=== PATIENT | female | born 1955 | race Caucasian/White ===

== ENCOUNTER 2024-04-20 04:46 | Inpatient (IN) | payer MEDICARE, SELFPAY ==
[2024-04-20] VITALS (7 sets, daily range): BP systolic 99–151; BP diastolic 60–106; BMI 24.3
--- NOTE | 2024-04-20 00:56 | ED.GENMED ---
History of Present Illness
<Sharlene Murphy MD - Last Filed: 04/20/24 10:03>
General
Chief Complaint: Abdominal Pain
Source: patient
Time Seen by Provider: 04/20/24 00:42
History of Present Illness
History of Present Illness:
This pt is a 68 yr old female who presents to the ED with c/o abd pain that began in epigastric area 2 days ago, gradual in onset, continuous...that got much worse after dinner tonight and has migrated to [facility]. Pt notes mild n, no v/f/c/cp/sob/back
pain. She denies radiation, relieving sxs, but notes worse with certain movements and when she tried herself to elicit rebound (pt is an [employer]). Pt denies urinary sxs, and had a bm recently.
Past History
<Sharlene Murphy MD - Last Filed: 04/20/24 10:03>
Past History
ED Past Medical History: Other (anxiety)
ED Past Surgical History: Other (ex lap for iud perforation of uterus, splenectomy)
Social History
Tobacco: Vaping
Alcohol: Other (5x/week)
Drug: None
Personal: Single
Employment: Employed
Phy Exam
<Sharlene Murphy MD - Last Filed: 04/20/24 10:03>
Physical Exam
Physical Exam:
GENERAL: Alert , appears mildly uncomfortable but pleasant
EYE: pupils equal and reactive
NECK: Supple, no significant adenopathy.
ENT: o/p clr, mmm.
CARDIAC: Regular rate and rhythm .
LUNGS: Clear breath sounds bilaterally, no acute respiratory distress, no wheezes/rales/rhonchi
ABDOMEN: Soft, llq mod tenderness, no guarding, no cvat (did not repeat rebound testing)
NEUROLOGICAL: Alert and oriented, no focal neuro deficits
SKIN: Warm and dry, skin intact.
MUSCULOSKELETAL: No edema, well perfused.
PSYCH: Normal and appropriate interaction.
Course
<Sharlene Murphy MD - Last Filed: 04/20/24 10:03>
Orders/Labs/Results
Orders:
Orders
04/20/24 00:55
CT Abd/Pel (IV only)-DH only Urgent
Comment:
Reason For Exam: LLQ ABD PAIN
Cardiac Monitoring- Treatment ONCE
Ketorolac [Toradol] 15 mg IV NOW STA
04/20/24 01:05
Comprehensive Metabolic Panel Urgent
Lipase Urgent
04/20/24 01:06
Complete Blood Count/No Diff Urgent
04/20/24 02:21
Morphine Sulfate 4 mg IV NOW STA
04/20/24 03:31
LevoFLOXacin 750 MG/150 ML [Levaquin] 750 mg in 150 ml IV NOW
MetroNIDAZOLE 500 MG/100 ML [Flagyl 500 mg] 100 ml IV NOW
04/20/24 03:55
Urinalysis Reflex To Culture Urgent
Date Specimen was Collected: 04/20/24
Time Specimen was Collected: 03:50
04/20/24 04:24
Admit/Transfer Patient As Directed
Co-Sign Provider:
Level of Care: Inpatient admission
Assign to:: Medical/Surgical
Physician / Group: Dottie Soares
Diagnosis: acute diverticulitis
Reason for Hospitalization: acute diverticulitis
Expected length of stay greater than two midnights?: Yes
ELOS- Estimated Length of Stay in days: 3
I certify the patient meets the requirements for IP care: Yes
Code Status As Directed
Resuscitation Status: Full Code
PRN Pain Medication Management As Directed
May give lesser potent ordered pain med per pt: Yes
preference::
Protocol:: Medication orders for pain may be administered in a
manner that supports deferring to patient preference
when the pt is:
- Requesting an ordered lesser potent pain medication.
Least to most potent pain medications are defined
as: acetaminophen < NSAID < tramadol < opioids
(morphine, oxycodone, hydromorphone).
- Requesting a lesser dose of the same medication IF
ORDERED.
- Requesting a less intrusive route of administration
if both routes are prescribed by the provider (PO <
IV).
04/20/24 04:59
Acetaminophen [Tylenol] 650 mg PO Q4HPRN PRN
Alprazolam [Xanax] 0.125 mg PO HSPRN PRN
Ketorolac [Toradol] 10 mg IV Q6HPRN PRN
Morphine Sulfate 4 mg IV Q4HPRN PRN
04/20/24 04:59
Activity As Directed
Activity Level: As Tolerated
Vital Signs As Directed
Frequency: Per unit guidelines
DX Deep Vein Thrombosis Video Routine
04/20/24 05:00
Flush (0.9% Sodium Chloride) [Flush (Nss)] See Dose Instructions IV PER PROTOCOL
Lactated Ringers [Lr] 1,000 ml IV 100 mls/hr
04/20/24 Breakfast
Clear Liquid
At Your Request: Full Participation
Piperacillin/Tazo 3.375 Gram [Zosyn] 3.375 gram in 50 ml IV Q6H
04/20/24 08:36
Basic Metabolic Panel IN AM
Complete Blood Count/With Diff IN AM
Magnesium IN AM
04/20/24 18:00
Enoxaparin Sodium [Lovenox] 40 mg SC QPM
04/20/24 22:00
Sertraline HCl [Zoloft] 50 mg PO HS
Abnormal Lab Results
04/20/24 04/20/24
01:05 01:06
WBC 14.3 H 10^3/uL
(4.8-10.8)
RBC 3.62 L 10^6/uL
(4.20-5.40)
Hgb 11.7 L g/dL
(12.0-16.0)
Hct 32.6 L %
(37.0-47.0)
MCH 32.3 H pg
(27.0-31.0)
BUN 20 H mg/dl
(7-17)
Glucose 137 H mg/dl
(70-99)
04/20/24 01:06
04/20/24 01:05
Vital Signs
Initial and Last Documented VS:
Initial Vital Signs
Temp Pulse Resp BP Pulse Ox
99.4 F 80 16 151/106 99
04/20/24 00:26 04/20/24 00:26 04/20/24 00:26 04/20/24 00:26 04/20/24 00:26
Last Documented Vital Signs
Temp Pulse Resp BP Pulse Ox
98.2 F 57 18 99/69 100
04/20/24 08:16 04/20/24 08:16 04/20/24 08:16 04/20/24 08:16 04/20/24 08:16
<Arjun Morris, DO - Last Filed: 04/20/24 04:38>
Orders/Labs/Results
Orders:
Orders
04/20/24 00:55
CT Abd/Pel (IV only)-DH only Urgent
Comment:
Reason For Exam: LLQ ABD PAIN
Cardiac Monitoring- Treatment ONCE
Ketorolac [Toradol] 15 mg IV NOW STA
04/20/24 01:05
Comprehensive Metabolic Panel Urgent
Lipase Urgent
04/20/24 01:06
Complete Blood Count/No Diff Urgent
04/20/24 02:21
Morphine Sulfate 4 mg IV NOW STA
04/20/24 03:31
LevoFLOXacin 750 MG/150 ML [Levaquin] 750 mg in 150 ml IV NOW
MetroNIDAZOLE 500 MG/100 ML [Flagyl 500 mg] 100 ml IV NOW
04/20/24 03:55
Urinalysis Reflex To Culture Urgent
Date Specimen was Collected: 04/20/24
Time Specimen was Collected: 03:50
04/20/24 04:24
Admit/Transfer Patient As Directed
Co-Sign Provider:
Level of Care: Inpatient admission
Assign to:: Medical/Surgical
Physician / Group: Dottie Soares
Diagnosis: acute diverticulitis
Reason for Hospitalization: acute diverticulitis
Expected length of stay greater than two midnights?: Yes
ELOS- Estimated Length of Stay in days: 3
I certify the patient meets the requirements for IP care: Yes
Code Status As Directed
Resuscitation Status: Full Code
PRN Pain Medication Management As Directed
May give lesser potent ordered pain med per pt: Yes
preference::
Protocol:: Medication orders for pain may be administered in a
manner that supports deferring to patient preference
when the pt is:
- Requesting an ordered lesser potent pain medication.
Least to most potent pain medications are defined
as: acetaminophen < NSAID < tramadol < opioids
(morphine, oxycodone, hydromorphone).
- Requesting a lesser dose of the same medication IF
ORDERED.
- Requesting a less intrusive route of administration
if both routes are prescribed by the provider (PO <
IV).
04/20/24 04:59
Acetaminophen [Tylenol] 650 mg PO Q4HPRN PRN
Alprazolam [Xanax] 0.125 mg PO HSPRN PRN
Ketorolac [Toradol] 10 mg IV Q6HPRN PRN
Morphine Sulfate 4 mg IV Q4HPRN PRN
04/20/24 04:59
Activity As Directed
Activity Level: As Tolerated
Vital Signs As Directed
Frequency: Per unit guidelines
DX Deep Vein Thrombosis Video Routine
04/20/24 05:00
Flush (0.9% Sodium Chloride) [Flush (Nss)] See Dose Instructions IV PER PROTOCOL
Lactated Ringers [Lr] 1,000 ml IV 100 mls/hr
04/20/24 Breakfast
Clear Liquid
At Your Request: Full Participation
Piperacillin/Tazo 3.375 Gram [Zosyn] 3.375 gram in 50 ml IV Q6H
04/20/24 08:36
Basic Metabolic Panel IN AM
Complete Blood Count/With Diff IN AM
Magnesium IN AM
04/20/24 18:00
Enoxaparin Sodium [Lovenox] 40 mg SC QPM
04/20/24 22:00
Sertraline HCl [Zoloft] 50 mg PO HS
Abnormal Lab Results
04/20/24 04/20/24
01:05 01:06
WBC 14.3 H 10^3/uL
(4.8-10.8)
RBC 3.62 L 10^6/uL
(4.20-5.40)
Hgb 11.7 L g/dL
(12.0-16.0)
Hct 32.6 L %
(37.0-47.0)
MCH 32.3 H pg
(27.0-31.0)
BUN 20 H mg/dl
(7-17)
Glucose 137 H mg/dl
(70-99)
04/20/24 01:06
04/20/24 01:05
Vital Signs
Initial and Last Documented VS:
Initial Vital Signs
Temp Pulse Resp BP Pulse Ox
99.4 F 80 16 151/106 99
04/20/24 00:26 04/20/24 00:26 04/20/24 00:26 04/20/24 00:26 04/20/24 00:26
Last Documented Vital Signs
Temp Pulse Resp BP Pulse Ox
98.2 F 57 18 99/69 100
04/20/24 08:16 04/20/24 08:16 04/20/24 08:16 04/20/24 08:16 04/20/24 08:16
<Arjun Morris DO - Last Filed: 04/20/24 04:38>
*Critical Care Note
Total Time (30-74mins, 75-104mins- exclusive of procedures): Not Applicable
<Sharlene Murphy MD - Last Filed: 04/20/24 10:03>
Update Note
Update Note:
Patient presents to the Emergency Department with ___abd pain
Number and Complexity of Problems Addressed at the Encounter
� Chronic conditions affecting care:
� Acute Exacerbation and/or Progression of Chronic Illness:
� Differential Diagnosis includes:but not limited to diverticulitis, pancreatitis, bowel obstruction, bowel perforation, etc. etc.
Amount and/or Complexity of Data to be Reviewed and Analyzed
� I performed an independent evaluation of and my interpretation is:
EKG:
CT:
Xrays:
Laboratory Studies:leukocytosis
Other:
� Review of other/old records reveals: echo 03/2023 CONCLUSIONS
Normal biventricular size and systolic function without regional wall motion
abnormality.
No significant valvular disease.
No significant change since the prior study of 05/14/20.
� Clinical information was obtained by an independent historian:
� Prescriptions/Medications Considered but not given:
� Further testing considered but not performed:
Risk of Complications and/or Morbidity or Mortality of Patient Management
� Social determinants of health affecting care:
� Discussion with other providers (PCP, Hospitalists, Consultants, etc):
� Escalation of care including admission/observation vs risk of discharge considered: [address] report, reassessment continued ttp now throughout lower abd, no guarding. Pt is sl nauseous, but no vomiting. Medicated
at pt request (now with morphine).
<Arjun Morris, - Last Filed: 04/20/24 04:38>
Update Note
Update Note:
Patient presents to the Emergency Department with ___abd pain
Number and Complexity of Problems Addressed at the Encounter
� Chronic conditions affecting care:
� Acute Exacerbation and/or Progression of Chronic Illness:
� Differential Diagnosis includes:but not limited to diverticulitis, pancreatitis, bowel obstruction, bowel perforation, etc. etc.
Amount and/or Complexity of Data to be Reviewed and Analyzed
� I performed an independent evaluation of and my interpretation is:
EKG:
CT:
Xrays:
Laboratory Studies:leukocytosis
Other:
� Review of other/old records reveals: echo 03/2023 CONCLUSIONS
Normal biventricular size and systolic function without regional wall motion
abnormality.
No significant valvular disease.
No significant change since the prior study of 05/14/20.
� Clinical information was obtained by an independent historian:
� Prescriptions/Medications Considered but not given:
� Further testing considered but not performed:
Risk of Complications and/or Morbidity or Mortality of Patient Management
� Social determinants of health affecting care:
� Discussion with other providers (PCP, Hospitalists, Consultants, etc):
� Escalation of care including admission/observation vs risk of discharge considered: [address] report, reassessment continued ttp now throughout lower abd, no guarding. Pt is sl nauseous, but no vomiting. Medicated
at pt request (now with morphine).
Update: Discussed findings with patient. She is resting comfortably at this time. She wishes to be admitted. Patient admitted to the hospitalist service for diverticulitis. Started on IV antibiotics.
ED Attending Note
<Sharlene Murphy MD - Last Filed: 04/20/24 10:03>
-
Portions of this chart may have been created with voice recognition software.� Occasional wrong word or��sound alike� substitutions may have occurred due to the inherent limitations of voice recognition software.
Discharge Plan
Departure
Patient Disposition: Admit
Date of Disposition: 04/20/24
Time of Disposition: 03:33
Admit to: Med/Surg
Presentation/result/management discussed w/ accepting MD/DO: Hospitalist
Discharge Problem:
Acute diverticulitis
Interventions
Interventions:
*Risk Screen - Suicide Last Done: 04/20/24 06:29
*General Assessment Last Done: 04/20/24 00:26
*Neglect/Abuse Screening Last Done: 04/20/24 00:26
ED- Fall Risk Assessment Last Done: 04/20/24 00:26
*ED COVID-19 Vaccine History Last Done: 04/20/24 06:29
*Nursing Disposition Last Done: 04/20/24 06:18
GV-Yqcqzq-Qkexgwxzkd Assessment Last Done: 04/20/24 01:21
Discharge Date and Time
Discharge Date/Time: 04/20/24 06:19
[2024-04-20] MEDS: TORADOL 15 MG IV (01:06)
[2024-04-20 01:20] LABS: Hematocrit 32.6 % (37.0-47.0); Hemoglobin 11.7 g/dL (12.0-16.0); Mean Corp Hgb Conc. 35.9 g/dL (33.0-37.0); Mean Corpuscular Hgb 32.3 pg (27.0-31.0); Mean Corpuscular Volume 90.1 fL (81.0-99.0); Mean Platelet Volume 9.9 fL (7.4-10.4); Platelet Count 318 10^3/uL (130-400); Red Blood Cell Count 3.62 10^6/uL (4.20-5.40); Red Cell Dist. Width 13.2 % (11.5-14.5); White Blood Cell Count 14.3 10^3/uL (4.8-10.8)
[2024-04-20 01:29] LABS: ALT (SGPT) 21 U/L (0-35); AST (SGOT) 24 U/L (14-36); Alkaline Phosphatase 55 U/L (38-126); Blood Urea Nitrogen 20 mg/dl (7-17); Calcium 9.3 mg/dl (8.4-10.2); Carbon Dioxide 25 mmol/L (22-30); Chloride 105 mmol/L (98-107); Glucose 137 mg/dl (70-99); Lipase 56 U/L (23-300); Sodium 136 mmol/L (135-145); Total Bilirubin 0.4 mg/dl (0.2-1.3); Total Protein 6.7 g/dl (6.3-8.2); eGFR > 60.00
[2024-04-20] MEDS: MORPHINE SULFATE 4 MG IV ×3 (02:21→16:50)
[2024-04-20] MEDS: FLAGYL 500 MG 100 IV (03:42)
--- NOTE | 2024-04-20 03:54 | HPS.HSE ---
Family Physician
-
Family Physician: * NONE
Chief Complaint
-
abdominal pain
History of Present Illness
Ms. Jackie Ferrara is a 68 yo woman with hx IUD perforation of uterus s/p ex-lap, spontaneous spleen rupture s/p splenectomy presents to the ER with abdominal pain.
Pain has been present over past 2 days and she had acute worsening this evening. Pain is in lower quadrants. + nausea, no vomiting, no diarrhea. No black or bloody stools. No fevers, + chills.
No chest pain or shortness of breath. No LE swelling.
Medical History
Past Medical History
Past Medical History: Reports Other (anxiety)
Past Surgical History: Reports Other ( IUD perforation of uterus s/p ex-lap, splenectomy )
Social History
Tobacco: Vaping
Alcohol: Other (5x/week)
Family History
Family History: Cancer (colon cancer, mother in 80's)
Allergies / Home Medications
Allergies reflects when Allergies were last updated in [employer].
Home Medications with original date entered in [employer]
Allergy/Medication List:
Allergies
Allergy/AdvReac Type Severity Reaction Status Date / Time
tod Allergy Hives Verified 04/20/24 00:26
strawberry Allergy Hives Verified 04/20/24 00:26
Sulfa (Sulfonamide Allergy Unknown Verified 04/20/24 00:26
Antibiotics)
Home Medications
alprazolam 0.25 mg tablet 0.125 mg PO HSPRN PRN insomnia 04/20/24
sertraline 50 mg tablet (Zoloft) 50 mg PO HS 04/20/24
Review of Systems
-
History Source: Patient
A 12 point ROS was completed and negative except as noted: Yes
Physical Exam
Vital Signs
Vital Signs
Temp Pulse Resp BP Pulse Ox
99.4 F 80 16 132/74 97
04/20/24 00:26 04/20/24 00:26 04/20/24 00:26 04/20/24 03:03 04/20/24 03:30
Physical Exam
General: No Apparent Distress
HEENT: PERRLA
Respiratory: Clear; No Wheezes
Cardiac: S1/S2 and Regular Rhythm
GI: Other (tenderness lower quadrants, no guarding )
Musculoskeletal: No Edema
Skin: Warm and Dry; No Rash
Neuro: AO x 3
Psych: Calm
Laboratory Results
-
04/20/24 01:06
04/20/24 01:05
Laboratory Results
Total Bilirubin 0.4 mg/dl (0.2-1.3) 04/20/24 01:05
AST 24 U/L (14-36) 04/20/24 01:05
ALT 21 U/L (0-35) 04/20/24 01:05
Alkaline Phosphatase 55 U/L (38-126) 04/20/24 01:05
Lipase 56 U/L (23-300) 04/20/24 01:05
Data Reviewed
-
Diagnostic Radiology: Report Reviewed by me
Lab Data: Labs Reviewed by me
Impression/Plan
-
Ms. Jackie Ferrara is a 68 yo woman with hx IUD perforation of uterus s/p ex-lap, splenectomy presents to the ER with abdominal pain.
Triage VS: T 99.4, P 80, RR 16, BP 151/106, SpO2 99%
LABS: WBC 14.3, Hg 11.7, PLT 318, Na 136, K+ 4.0, Cl 105, CO2 25, BUN 20, Cr 0.6, Glucose 137, liver enzymes WNL
CT A/P: short segment severe sigmoid colon wall thickening suspicious for diverticulitis may also represent colitis. Moderate pericolonic inflammatory change. No fluid collection or free air. Nl appendix. No bowel obstruction. Splenectomy.
MAR: Levaquin/flagyl, morphine, Toradol
Acute Diverticulitis versus Colitis
-admit to med/surg
-no penicillin allergy, has not received Levaquin yet- will change to IV Zosyn
-clear liquid diet
-IVF
-pain control
-patient's last colonoscopy was 2021. (Mom from colon CA that year)
Hx IUD perforation of Uterus s/p Ex-Lap
Hx Splenectomy
DVT PPx lovenox subQ
FULL CODE
[2024-04-20 04:09] LABS: Urine Albumin Negative (Neg - Trace); Urine Bilirubin Negative (Negative); Urine Character Clear (Clear); Urine Color Yellow; Urine Glucose Negative (Negative); Urine Ketone Negative (Negative); Urine Leukocyte Negative (Negative); Urine Nitrite Negative (Negative); Urine Occult Blood Negative (Negative); Urine Urobilinogen Negative (Neg - 1+)
[2024-04-20] MEDS: ZOSYN 50 IV ×4 (07:44→23:27)
[2024-04-20] MEDS: LR 1000 IV ×2 (07:46→16:44)
[2024-04-20 09:54] LABS: % Basophils 0.5 % (0-2); % Eosinophils 0.4 % (0-6); % Immature Granulocytes 0.3 % (0-0.5); % Lymphocytes 23.4 % (20.5-51.1); % Monocytes 11.2 % (1.7-9.3); % Neutrophils 64.2 % (42.2-75.2); Absolute Basophils 0.1 10^3/uL (0-0.2); Absolute Eosinophils 0.1 10^3/uL (0-0.7); Absolute Lymphocytes 2.7 10^3/uL (1.2-3.4); Absolute Monocytes 1.3 10^3/uL (0.1-0.6); Absolute Neutrophils 7.4 10^3/uL (1.4-6.5); Hematocrit 32.2 % (37.0-47.0); Hemoglobin 11.3 g/dL (12.0-16.0); Mean Corp Hgb Conc. 35.1 g/dL (33.0-37.0); Mean Corpuscular Volume 94.2 fL (81.0-99.0); Mean Platelet Volume 10.7 fL (7.4-10.4); Nucleated Red Blood Cells % 0 %; Platelet Count 302 10^3/uL (130-400); Red Blood Cell Count 3.42 10^6/uL (4.20-5.40); Red Cell Dist. Width 13.5 % (11.5-14.5); White Blood Cell Count 11.5 10^3/uL (4.8-10.8)
[2024-04-20 09:56] LABS: Blood Urea Nitrogen 17 mg/dl (7-17); Calcium 9.3 mg/dl (8.4-10.2); Carbon Dioxide 25 mmol/L (22-30); Chloride 104 mmol/L (98-107); Estimated Creatinine Clearance 76 ml/min; Glucose 101 mg/dl (70-99); Magnesium 1.8 mg/dl (1.6-2.3); Potassium 4.1 mmol/L (3.5-5.1); Sodium 136 mmol/L (135-145); eGFR > 60.00
--- NOTE | 2024-04-20 10:54 | W.PN.HOSP.TC ---
Today's Communication/Plan
-
monitor vitals
see plan
cw fluids
NPO
CRS evaluation
cw abx
Non billable note
Assessment / Plan
Assessment / Plan
General: No Apparent Distress
HEENT: PERRLA
Respiratory: Clear; No Wheezes
Cardiac: S1/S2 and Regular Rhythm
GI: Other (tenderness lower quadrants, +guarding)
Skin: Warm and Dry; No Rash
Neuro: AO x 3
Psych: Calm
Acute Diverticulitis
CT noted with acute diverticulitis; cannot exclude contained perf; patient is tender on exam. consult CRS
cw IV zosyn
did not tolerate CLD; NPO for now
-IVF
-pain control
-patient's last colonoscopy was 2021. (Mom from colon CA that year)
hx of anxiety
Hx IUD perforation of Uterus s/p Ex-Lap
Hx Splenectomy
DVT PPx lovenox subQ
FULL CODE
Anticipated Discharge: 24 - 48 hours
Subjective/Interval History
-
Date of Service: April 20, 2024
has pain
Objective Data
-
Labs:
Laboratory Results
04/20/24 04/20/24 04/20/24
01:05 01:06 08:36
WBC 14.3 H 11.5 H
Hgb 11.7 L 11.3 L
Hct 32.6 L 32.2 L
Plt Count 318 302
Sodium 136 136
Potassium 4.0 4.1
Chloride 105 104
Carbon Dioxide 25 25
BUN 20 H 17
Creatinine 0.6 0.6
Glucose 137 H 101 H
Calcium 9.3 9.3
Total Bilirubin 0.4
AST 24
ALT 21
Alkaline Phosphatase 55
Vital Signs:
Vital Signs
Temp Pulse Resp BP Pulse Ox
98.2 F 57 18 99/69 100
04/20/24 08:16 04/20/24 08:16 04/20/24 08:16 04/20/24 08:16 04/20/24 08:16
--- NOTE | 2024-04-20 13:37 | CON.CRS ---
Addendum entered and electronically signed by Ermias Hughes MD 04/20/24 18:34:
I saw and examined the patient.
The PA's note was reviewed and I agree with the note.
Comment:
I personally reviewed the medical record and imaging studies. She is admitted with her 1st episode of sigmoid diverticulitis. She feels a little better, and certainly no worse since admission. She is afebrile and her WBC is improved. She has mild
focal tenderness in the LLQ.
I reviewed the current findings and treatment options including continued nonoperative management versus surgery. Surgery at this could result in a temporary colostomy. I do not feel surgery is indicated at this time. She tried clear liquids
earlier and developed some nausea, so will keep NPO for now.
All questions answered. Will follow.
Original Note:
Consultation
-
Date/Time Consultation Requested: 04/20/2024, 10:57
Date/Time Consultation Performed: 04/20/2024, 14:30
Requesting Provider: Mustapha Perez MD
Performing Provider: Alex Hughes MD
Reason for Consultation: diverticulitis
Medical History
-
Chief Complaint: abdominal pain
History of Present Illness:
68yo female presents to [facility] ER complaining of abdominal pain for the past two days. She also complains of associated nausea and constipated stools. She denies bloody stools. At home she had a tmax of 99.4 and felt rigors. After a meal
yesterday her abdomen got distended and that prompted her to go to the ER. On arrival her lower abdomen was moderately tender and has since improved.
On admission her WBC was 14.3 and is now down to 11.5. Her vitals are normal and she remains afebrile. CT A/P shows diverticulitis involving the sigmoid colon. There is free fluid in the pelvis. Small contained perforation cannot be excluded.
Initially she was on levaquin and flagyl, but was changed to Zosyn. Her mother of colon cancer in 2021. Her last colonoscopy was at [facility] in 2021 and she had three hyperplastic polyps. Her abdominal surgeries include an ex lap for an
IUD that migrated into her omentum and a splenectomy.
Past Medical History
Past Medical History: Other (anxiety)
Past Surgical History: Other ( IUD perforation of uterus s/p ex-lap, splenectomy )
Social History
Tobacco: Vaping
Alcohol: Other (5x a week)
Family History
Family History: Cancer (mother - colon cancer)
Allergies / Home Medications
Allergy/AdvReac Type Severity Reaction Status Date / Time
tod Allergy Hives Verified 04/20/24 00:26
strawberry Allergy Hives Verified 04/20/24 00:26
Sulfa (Sulfonamide Allergy Unknown Verified 04/20/24 00:26
Antibiotics)
�Medication �Instructions �Recorded �Confirmed �Type
alprazolam 0.25 mg tablet 0.125 mg PO HSPRN PRN insomnia 04/20/24 04/20/24 History
sertraline 50 mg tablet (Zoloft) 50 mg PO HS 04/20/24 04/20/24 History
Review of Systems
-
History Source: Patient
Abdomen/GI: Abdominal Pain and Nausea
A 10 point review of systems was completed, and was negative except as per HPI.
Physical Exam
Vital Signs
Temp 98.2 F 04/20/24 08:16
Pulse 57 04/20/24 08:16
Resp Rate 18 04/20/24 08:16
Blood pressure 99/69 04/20/24 08:16
SaO2 100 04/20/24 08:16
04/19/24 04/20/24 04/21/24
06:59 06:59 06:59
Actual Weight 62.284 kg
Body Mass Index (BMI) 24.3
Lab Results / Allergies
04/20/24 08:36
04/20/24 08:36
WBC 11.5 10^3/uL (4.8-10.8) H 04/20/24 08:36
Hgb 11.3 g/dL (12.0-16.0) L 04/20/24 08:36
Hct 32.2 % (37.0-47.0) L 04/20/24 08:36
Plt Count 302 10^3/uL (130-400) 04/20/24 08:36
Abs Immat Gran (auto) 0.0 10^3/uL (0-0.05) 04/20/24 08:36
Neutrophils % 64.2 % (42.2-75.2) 04/20/24 08:36
Allergy/AdvReac Type Severity Reaction Status Date / Time
tod Allergy Hives Verified 04/20/24 00:26
strawberry Allergy Hives Verified 04/20/24 00:26
Sulfa (Sulfonamide Allergy Unknown Verified 04/20/24 00:26
Antibiotics)
Physical Exam
General: Well Developed and No Apparent Distress
GI: Soft, Non Distended and Tender (LLQ mild)
Skin: Warm and Dry
Neuro: AO x 3
Psych: Calm
Data Reviewed
-
CT Scan: Image Personally Visualized and interpreted, Report Reviewed by me and Discussed with Patient
Labs: Labs Reviewed by me, Discussed with Physician and Discussed with Patient
Old Records: Reviewed
Assessment / Plan
-
Assessment: 68 yo female with uncomplicated sigmoid diverticulitis
Plan:
-Agree with IV antibiotics
-Currently NPO, remain NPO at this time (tried clears earlier and felt nauseous)
-No plans for surgery at this time, if she worsens, she will require a colectomy with a colostomy creation
-Will follow
--- NOTE | 2024-04-20 16:05 | CM ---
Alert awake oriented patient who lives alone in a 1 story home with 3 steps to enter and bed/bathroom on first floor. She is independent in driving and all activates of daily living.She has no adaptive devices.She has supportive son and dgt
No VN in past . No SNF hx
Pharmacy [facility] Randy Vera
PCP Has no PCP . [facility] handout. She has MD numbers to call
PLAN Home with no anticipated needs
[2024-04-20] MEDS: LOVENOX 40 MG SC (16:42)
[2024-04-20] MEDS: ZOLOFT 50 MG PO (21:10)
[2024-04-21] MEDS: LR 1000 IV ×2 (05:03→16:52)
[2024-04-21] MEDS: ZOSYN 50 IV ×4 (05:52→23:31)
[2024-04-21] MEDS: FLUSH (NSS) 2 FLUSH IV (05:52)
[2024-04-21 07:17] LABS: % Basophils 1.2 % (0-2); % Eosinophils 3.5 % (0-6); % Immature Granulocytes 0.3 % (0-0.5); % Lymphocytes 42.1 % (20.5-51.1); % Monocytes 12.1 % (1.7-9.3); % Neutrophils 40.8 % (42.2-75.2); Absolute Basophils 0.1 10^3/uL (0-0.2); Absolute Eosinophils 0.2 10^3/uL (0-0.7); Absolute Lymphocytes 2.5 10^3/uL (1.2-3.4); Absolute Monocytes 0.7 10^3/uL (0.1-0.6); Absolute Neutrophils 2.5 10^3/uL (1.4-6.5); Hematocrit 30.4 % (37.0-47.0); Hemoglobin 10.4 g/dL (12.0-16.0); Mean Corp Hgb Conc. 34.2 g/dL (33.0-37.0); Mean Corpuscular Hgb 31.6 pg (27.0-31.0); Mean Corpuscular Volume 92.4 fL (81.0-99.0); Mean Platelet Volume 10.5 fL (7.4-10.4); Nucleated Red Blood Cells % 0 %; Platelet Count 307 10^3/uL (130-400); Red Blood Cell Count 3.29 10^6/uL (4.20-5.40); Red Cell Dist. Width 13.4 % (11.5-14.5)
[2024-04-21 07:53] LABS: Blood Urea Nitrogen 14 mg/dl (7-17); Calcium 9.3 mg/dl (8.4-10.2); Carbon Dioxide 27 mmol/L (22-30); Chloride 105 mmol/L (98-107); Estimated Creatinine Clearance 65 ml/min; Glucose 82 mg/dl (70-99); Potassium 4.5 mmol/L (3.5-5.1); Sodium 137 mmol/L (135-145); eGFR > 60.00
[2024-04-21 07:55] VITALS: BP 134/75
--- NOTE | 2024-04-21 10:42 | W.PN.CRS1 ---
Today's Communication / Plan
-
Clear liquids and advance to fulls as tolerated
Assessment/Plan
-
68 yo female presenting with 1st episode of sigmoid diverticulitis
AFVSS
Leukocytosis resolved
Improving with abx/bowel rest
--Continue nonoperative management at this time
--Ok for clear liquids, advance to FLD later today if tolerating without increase in pain
--Continue IV abx
Subjective Data
Subjective Data
Date of Service: April 21, 2024
Patient seen and examined at bedside with Dr. Hughes. Pain improving. Denies n/v. Passing gas but no stools.
Objective Data
-
Vital Signs
Temp Pulse Resp BP Pulse Ox
98.1 F 51 14 134/75 98
04/21/24 07:55 04/21/24 07:55 04/21/24 07:55 04/21/24 07:55 04/21/24 07:55
Intake & Output
04/20/24 04/21/24 04/22/24
06:59 06:59 06:59
Intake Total 1500 / 1500
Balance 1500 / 1500
Intake:
Oral fluids 300 / 300
IV fluids (Total) 1100 / 1100
IV piggybacks 100 / 100
Other:
Number of approximated SMALL 2
amounts of urine
Number of approximated MODERATE 1
amounts of urine
Lab Results
04/21/24 06:13
04/21/24 06:13
Physical Exam
-
General: No Acute Distress
HEENT: Grossly Normal
Abdomen: Soft, Non Distended and Tender (LLQ into suprapubic region)
Skin: Warm and Dry
[2024-04-21] MEDS: TYLENOL 650 MG PO (11:59)
--- NOTE | 2024-04-21 12:31 | W.PN.HOSP.TC ---
Today's Communication/Plan
-
Monitor vital signs and see plan
Trial of clears
Continue antibiotics
Continue with fluids for now
Assessment / Plan
Assessment / Plan
General: No Apparent Distress
HEENT: PERRLA
Respiratory: Clear; No Wheezes
Cardiac: S1/S2 and Regular Rhythm
GI: Other (tenderness lower quadrants)
Skin: Warm and Dry; No Rash
Neuro: AO x 3
Psych: Calm
Acute Diverticulitis
CT noted with acute diverticulitis; cannot exclude contained perf
cw IV zosyn
Trial of clears, if tolerates then advance to fulls
Colorectal surgery following
-IVF
-pain control
-patient's last colonoscopy was 2021. (Mom from colon CA that year)
hx of anxiety
Hx IUD perforation of Uterus s/p Ex-Lap
Hx Splenectomy
DVT PPx lovenox subQ
FULL CODE
Anticipated Discharge: 24 - 48 hours
Subjective/Interval History
-
Date of Service: April 21, 2024
still has some pain today
Objective Data
-
Labs:
Laboratory Results
04/21/24
06:13
WBC 6.0
Hgb 10.4 L
Hct 30.4 L
Plt Count 307
Sodium 137
Potassium 4.5
Chloride 105
Carbon Dioxide 27
BUN 14
Creatinine 0.7
Glucose 82
Calcium 9.3
Vital Signs:
Vital Signs
Temp Pulse Resp BP Pulse Ox
98.1 F 51 14 134/75 98
04/21/24 07:55 04/21/24 07:55 04/21/24 07:55 04/21/24 07:55 04/21/24 07:55
I&O
04/20/24 04/21/24 04/22/24
06:59 06:59 06:59
Intake Total 1500 / 1500
Balance 1500 / 1500
[2024-04-21 15:25] VITALS: BP 132/75
[2024-04-21] MEDS: LOVENOX SC (17:54)
[2024-04-21] MEDS: ZOLOFT 50 MG PO (22:14)
[2024-04-21] MEDS: XANAX 0.125 MG PO (22:14)
[2024-04-21 23:40] VITALS: BP 149/86
[2024-04-22] MEDS: XANAX 0.125 MG PO (02:40)
[2024-04-22] MEDS: LR 1000 IV (02:40)
[2024-04-22] MEDS: ZOSYN 50 IV (05:57)
[2024-04-22] MEDS: LR IV (07:40)
--- NOTE | 2024-04-22 07:44 | PTCARENOTE ---
Patient denies nausea or abdominal pain/tenderness. Advanced to low residue diet for breakfast. Reports high oral intake of fluids and has IV fluids. Reports poor sleep due to having urinary frequency.
[2024-04-22 07:55] VITALS: BP 147/80
[2024-04-22 08:13] LABS: % Eosinophils 1.4 % (0-6); % Immature Granulocytes 0.3 % (0-0.5); % Lymphocytes 27.6 % (20.5-51.1); % Neutrophils 60.7 % (42.2-75.2); Absolute Basophils 0.1 10^3/uL (0-0.2); Absolute Eosinophils 0.1 10^3/uL (0-0.7); Absolute Lymphocytes 2.1 10^3/uL (1.2-3.4); Absolute Monocytes 0.7 10^3/uL (0.1-0.6); Absolute Neutrophils 4.6 10^3/uL (1.4-6.5); Hematocrit 31.5 % (37.0-47.0); Hemoglobin 10.9 g/dL (12.0-16.0); Mean Corp Hgb Conc. 34.6 g/dL (33.0-37.0); Mean Corpuscular Hgb 31.8 pg (27.0-31.0); Mean Corpuscular Volume 91.8 fL (81.0-99.0); Mean Platelet Volume 10.7 fL (7.4-10.4); Nucleated Red Blood Cells % 0 %; Platelet Count 351 10^3/uL (130-400); Red Blood Cell Count 3.43 10^6/uL (4.20-5.40); White Blood Cell Count 7.7 10^3/uL (4.8-10.8)
--- NOTE | 2024-04-22 08:30 | W.PN.CRS1 ---
Today's Communication / Plan
-
LRD
Dispo planning
Assessment/Plan
-
68 yo female presenting with 1st episode of sigmoid diverticulitis
AFVSS
Leukocytosis resolved
Continues to improve with medical management
--Advance to LRD
--Continue abx, transition to PO upon discharge
--Clear for discharge from surgical standpoint if tolerating diet
Subjective Data
Subjective Data
Date of Service: April 22, 2024
Patient seen and examined at bedside. Denies n/v. Tolerating diet. Pain nearly resolved, minimally present with deep palpation. Passing flatus.
Objective Data
-
Vital Signs
Temp Pulse Resp BP Pulse Ox
98.3 F 52 18 147/80 96
04/22/24 07:55 04/22/24 07:55 04/22/24 07:55 04/22/24 07:55 04/22/24 07:55
Intake & Output
04/21/24 04/22/24 04/23/24
06:59 06:59 06:59
Intake Total 1500 / 1500 2690 / 2690
Balance 1500 / 1500 2690 / 2690
Intake:
Oral fluids 300 / 300 1440 / 1440
IV fluids (Total) 1100 / 1100 1100 / 1100
IV piggybacks 100 / 100 150 / 150
Other:
Number of approximated SMALL 2
amounts of urine
Number of approximated MODERATE 1 4
amounts of urine
Lab Results
04/22/24 06:25
Physical Exam
-
General: No Acute Distress
HEENT: Grossly Normal
Abdomen: Soft, Non Distended and Tender (very mild to LLQ into suprapubic region)
Skin: Warm and Dry
[2024-04-22 08:39] LABS: Blood Urea Nitrogen 9 mg/dl (7-17); Calcium 9.6 mg/dl (8.4-10.2); Carbon Dioxide 26 mmol/L (22-30); Chloride 106 mmol/L (98-107); Estimated Creatinine Clearance 65 ml/min; Glucose 93 mg/dl (70-99); Potassium 4.3 mmol/L (3.5-5.1); Sodium 138 mmol/L (135-145); eGFR > 60.00
--- NOTE | 2024-04-22 10:19 | PTCARENOTE ---
Tolerated low residue breakfast and states she had two small BMs. Walking in halls without issues or complaints at this time. Possible discharge home today.
--- NOTE | 2024-04-22 10:45 | W.PN.HOSP.TC ---
Today's Communication/Plan
-
Monitor vital signs see plan
Discharge today with p.o. antibiotics
Patient to follow with colorectal surgery outpatient
Time of discharge 38 minutes
Assessment / Plan
Assessment / Plan
General: No Apparent Distress
HEENT: PERRLA
Respiratory: Clear; No Wheezes
Cardiac: S1/S2 and Regular Rhythm
GI: Other (tenderness lower quadrants)
Skin: Warm and Dry; No Rash
Neuro: AO x 3
Psych: Calm
Acute Diverticulitis
CT noted with acute diverticulitis; cannot exclude contained perf
cw IV zosyn, transition to p.o. Augmentin on discharge
Now just had low residue diet, tolerated. Discharge today with outpatient follow-up with colorectal
Colorectal surgery following
-pain control
-patient's last colonoscopy was 2021. (Mom from colon CA that year)
hx of anxiety
Hx IUD perforation of Uterus s/p Ex-Lap
Hx Splenectomy
DVT PPx lovenox subQ
FULL CODE
Anticipated Discharge: Today
Subjective/Interval History
-
Date of Service: April 22, 2024
Denies nausea
Objective Data
-
Labs:
Laboratory Results
04/22/24
06:25
WBC 7.7
Hgb 10.9 L
Hct 31.5 L
Plt Count 351
Sodium 138
Potassium 4.3
Chloride 106
Carbon Dioxide 26
BUN 9
Creatinine 0.7
Glucose 93
Calcium 9.6
Vital Signs:
Vital Signs
Temp Pulse Resp BP Pulse Ox
98.3 F 52 18 147/80 96
04/22/24 07:55 04/22/24 07:55 04/22/24 07:55 04/22/24 07:55 04/22/24 07:55
I&O
04/21/24 04/22/24 04/23/24
06:59 06:59 06:59
Intake Total 1500 / 1500 2690 / 2690
Balance 1500 / 1500 2690 / 2690
--- NOTE | 2024-04-22 10:50 | W.DCSUMMARY ---
Discharge Summary
Discharge Data
Date of Admission: 04/20/24
Date of Discharge: 04/22/24
-
Pending Results: No
Hospital Course
68-year-old female with past manage anxiety, IUD perforation of uterus came to the hospital with abdominal pain known to have acute diverticulitis. Patient has significant tenderness on exam on admission so colorectal surgery was consulted.
Colorectal surgery followed patient throughout hospitalization and wanted to manage this conservatively. Patient was initially started on IV antibiotics later transitioned to p.o. antibiotics prior to discharge. Prior to discharge patient was able
to tolerate low residue diet so was deemed stable to be discharged home with close instructions to follow-up with her PCP and colorectal surgery outpatient.
Discharge Plan
-
Patient Disposition: Home (Routine Discharge)
Discharge Diagnosis/Procedures: Acute diverticulitis
Condition: Good
Diet: Low Fiber
Activity: With assistance
Driving Restrictions: As prior to admission
Bathing Restrictions: None
Instructions: Low Fiber Diet
Referrals:
Ermias Hughes MD [Active] - in three to four weeks
NONE,* [Family Provider] - in less than 1 week
Prescriptions:
New
amoxicillin-pot clavulanate 875-125 mg tablet
1 tab PO Q12H Qty: 20 0RF
Probiotic 10 billion cell capsule
10,000 mmu cells PO DAILY Qty: 10 0RF
Continued
alprazolam 0.25 mg Tablet
0.125 mg PO HSPRN PRN (Reason: insomnia)
sertraline [Zoloft] 50 mg Tablet
50 mg PO HS
Discharge Orders:
Discharge Patient (As Directed); Ordered 04/22/24
Ordered By: Mustapha Perez
Discharge Date and Time
Discharge Date/Time: 04/22/24 11:02
Print Language: KHMER
--- NOTE | 2024-04-22 10:58 | PTCARENOTE ---
Reviewed discharge instructions with patient. Patient verbalizes understanding of all teaching and denies questions. Patient left via wheelchair with staff escort. Son is transport home.
--- NOTE | 2024-04-22 15:28 | CM ---
met with patient who is stable for dc hme with no needs.patient signed imm letter.family to transport home.
== END 2024-04-22 11:02 | disposition home or self-care (01) | DRG 392 ==
LOC: 4 EAST ACU 04:46
PROVIDERS: ADMITTING PHYSICIAN Student in an Organized Health Care Education/Training Program; ATTENDING PHYSICIAN Internal Medicine; CONSULT PHYSICIAN Surgery; EMERGENCY PHYSICIAN Emergency Medicine
DX: K57.32 Diverticulitis of large intestine without perforation or abscess without bleeding (principal); K59.00 Constipation, unspecified; F41.9 Anxiety disorder, unspecified; G47.00 Insomnia, unspecified; F17.290 Nicotine dependence, other tobacco product, uncomplicated; Z80.0 Family history of malignant neoplasm of digestive organs; Z90.81 Acquired absence of spleen; Z79.899 Other long term (current) drug therapy
CPT/HCPCS: 74177; 80048; 80053; 81003; 83690; 83735; 85025; 85027; 96365; 96375; 99285; Q9967

== ENCOUNTER → 2024-05-23 13:10 | Outpatient (REF) | payer MEDICARE, SELFPAY | LOC: RAD 13:10 | PROVIDERS: ATTENDING PHYSICIAN Physician Assistant | DX: M79.672 Pain in left foot (principal) | CPT/HCPCS: 73630 ==

== ENCOUNTER → 2024-06-26 12:57 | Outpatient (REF) | payer MEDICARE, SELFPAY | LOC: HWRAD 12:57 | PROVIDERS: ATTENDING PHYSICIAN Obstetrics & Gynecology; FAMILY PHYSICIAN Physician Assistant | DX: M81.0 Age-related osteoporosis without current pathological fracture (principal) | CPT/HCPCS: 77080 ==

== ENCOUNTER → 2025-02-15 10:34 | Outpatient (REF) | payer MEDICARE, SELFPAY | LOC: HWRAD 10:34 | PROVIDERS: FAMILY PHYSICIAN Physician Assistant | DX: R07.81 Pleurodynia (principal) | CPT/HCPCS: 71046 ==

== ENCOUNTER → 2025-05-17 13:30 | Outpatient (REF) | payer MEDICARE, SELFPAY | LOC: HWRAD 13:30 | PROVIDERS: ATTENDING PHYSICIAN Internal Medicine Critical Care Medicine; FAMILY PHYSICIAN Physician Assistant | DX: Z87.891 Personal history of nicotine dependence (principal) | CPT/HCPCS: 71271 ==